=== PATIENT | female | born 1995 | race Caucasian/White ===

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

== ENCOUNTER 2017-01-31 11:11 | Outpatient (CLI) | payer BC ==
--- NOTE | 2017-01-31 21:34 | XRAY Report ---
LEFT INDEX FINGER, THREE VIEWS: 01/31/2017 CLINICAL HISTORY: A 21-year-old female with injury to the left index finger. COMPARISON: 12/03/2016 Mild soft tissue swelling is noted about the left index finger. On preceding exam from 12/03/2016, t here was a question of a subtle fracture along the ventral aspect of the base of the middle phalanx. Today's exam shows subtle variation in the trabecular pattern of the index finger in this region. T his finding is either a normal variation or probably related to healed old trauma. If patient has pe rsistent clinical symptoms in this region, a repeat x-ray of this area could be obtained in six month s for further evaluation. Joint spaces of the left index finger's PIP and DIP joints appear normal. IMPRESSION: MILD SOFT TISSUE SWELLING IS NOTED ABOUT THE LEFT INDEX FINGER, SPECIFICALLY THE PROXIMAL INTERPHALAN GEAL JOINT. MILD VARIATION IN THE TRABECULAR PATTERN OF THE VENTRAL ASPECT OF THE BASE OF THE MIDDLE PHALANX IS O NCE AGAIN NOTED THAT IS SUGGESTIVE OF HEALED OLD TRAUMA. NO SIGNIFICANT CHANGE IS NOTED IN THIS HEMAL ON COMPARED TO PRIOR EXAM DATED 12/03/2016. IF PATIENT HAS PERSISTENT CLINICAL SYMPTOMS IN THIS R EGION, A FOLLOWUP X-RAY COULD BE OBTAINED IN SIX MONTHS FOR FURTHER EVALUATION. JOB #: [id number] [id number] JOB #:[id number]
== END 2017-01-31 11:12 | disposition home or self-care (01) ==
LOC: DI 11:11
PROVIDERS: ATTEND Family Medicine
DX: S69.82XD Other specified injuries of left wrist, hand and finger(s), subsequent encounter (principal); R22.32 Localized swelling, mass and lump, left upper limb
CPT/HCPCS: 73140